=== PATIENT | female | born 1960 | race Caucasian/White ===

== ENCOUNTER → 2017-08-16 | Outpatient (CLI) | payer BC | LOC: BMCIMAGING 09:07 | PROVIDERS: ATTEND Internal Medicine | DX: Z12.31 Encounter for screening mammogram for malignant neoplasm of breast (principal) | CPT/HCPCS: G0202 ==

== ENCOUNTER 2017-12-04 05:49 | Observation (INO) | payer BC ==
[~2017-12-04 05:49] MED LIST: LIDOCAINE 1% 2 ML INJ ID PRN; LR 1,000 ML IV ONE
[2017-12-04] MEDS ORDERED: MIDAZOLAM 2 MG/2 ML VIAL ONE (07:00)
[2017-12-04] MEDS ORDERED: BUPIVACAINE/EPI 0.5% 30 ML SDV ONE ×2 (07:05→09:51)
[2017-12-04] MEDS ORDERED: PROPOFOL/EMULSION 500 MG/50 ML BOTTLE IV ONE ×2 (07:15→08:39)
[2017-12-04] MEDS ORDERED: fentaNYL 100 MCG/2 ML INJ ONE ×3 (07:15→10:07)
--- NOTE | 2017-12-04 07:21 | PDGENHP ---
History and Physical History and Physical: Assessment and Plan: 1. Cystocele, lateral Neyda has stage III pelvic organ prolapse involving all 3 compartments. She also has stress urinary incontinence. We reviewed all conservative and surgical options. At the end of our discussion she is interested in reconstructive surgery. This will involve a robotic supracervical hysterectomy , sacral colpopexy, trans-obturator sling, and perineorrhaphy. I would like her to start using Premarin cream in the vagina. 2. Incomplete uterine prolapse 3. Rectocele 4. Genuine stress incontinence, female 5. Postmenopausal atrophic vaginitis Subjective: Patient ID: Neyda Mcneil is a 57 y.o. female who presents to [facility] for prolapse. BRANDY Faye is a 57-year-old para 2 woman. 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 Her primary care provider is Dr. Molly De Leon. She repeat she presents to discuss pelvic prolapse. She first developed symptoms after the of her first child. She became menopausal about 3 years ago. Prior to that she found it difficult to place tampons due to her prolapse. She finds intercourse painful. She feels raw and as though she is tearing. She has noticed moderate bulge symptoms. Her urine stream is intermittently slow. Her symptoms appear to have worsened over the last 6 months. She occasionally has to lean back with bowel movements. She only has stress incontinence when her bladder is full, laughs hard, or has an upper respiratory infection. She wakes up once per night with the need to urinate. She has no fecal incontinence symptoms. PastMedicalHistory Past Medical History: Diagnosis Date Allergy to pollen Anemia Trauma Varicella PastSurgicalHistory Past Surgical History: Procedure Laterality Date WISDOM TOOTH EXTRACTION CURRENT MEDICATIONS: Current Outpatient Prescriptions Medication Sig calcium carbonate-vitamin D3 (CALCIUM 500 + D) 500 mg(1,250mg) -400 unit Tab per tablet Take 1 tablet by mouth daily. cholecalciferol (VITAMIN D3) 1,000 unit tablet Take 2,000 Units by mouth daily. multivitamin (HEXAVITAMIN) per tablet Take 1 tablet by mouth daily. conjugated estrogens (PREMARIN) 0.625 mg/gram vaginal cream Place 1 inch strip on finger and rub into vaginal tissues twice weekly No current facility-administered medications for this visit. ALLERGIES: Adhesive and Penicillins I have reviewed, verified and agree with the past medical, surgical, , family, social and ROS history as documented by the RN today. Objective: Vital Signs: Visit Vitals BP 100/62 Pulse 59 Temp 36.7 C (98 F) (Temporal Artery) Resp 14 Ht 1.626 m (5' 4") Wt 65.7 kg (144 lb 12.8 oz) SpO2 98% BMI 24.85 kg/m Physical Exam Gen: This is an alert, well developed woman in no distress. Neuro: She moves all extremities. Psych: She is appropriate, oriented, with normal affect. Neck: No thyroid enlargement, adenopathy, or tenderness. Lungs: Clear to ascultation, no wheezes or rales. Heart: Regular rate and rhythm without obvious murmurs. Abdomen: Soft, non-tender, without guarding, rebound, or masses. Extremities: No edema or cyanosis. Pelvic: Normal external genitalia. Cervix without lesions or discharge. Uterus normal sized, mobile, non-tender. Adnexa non-tender without enlargement. She has a gaping introitus with a hypermobile perineal body. She has a third- degree cystourethrocele, second-degree almost third-degree uterine prolapse, second-degree almost third-degree rectocele with mild atrophy. POP-Q Values are: Aa= +2, Ba= +2, C= 0 Gh= 4.5, pb= 2.5, tvl= 10 Ap= 0, Bp= 0, D= -3 DATA: I have reviewed the pertinent medical records. TIME/COMMUNICATION: I personally spent a total of 50 minutes. Of that 40 minutes was counseling/ coordination of patient's care. See my note above for details. Rah Hunt MD Board Certified Female Pelvic Medicine and Reconstructive Surgery Director of Minimally Invasive Gynecologic Surgery, [facility] Surgeon in Minimally Invasive Gynecologic Surgery [facility] Surgeon in Robotic Surgery
--- NOTE | 2017-12-04 07:21 | PDHPUP ---
History & Physical Update H&P update statement: This history and physical update is based on an assessment of the patient which was completed after admission or registration (within 24 hours), but prior to the surgery/procedure. H&P update: H&P reviewed & patient examined, no change in patient's condition since H&P completed
[2017-12-04] MEDS ORDERED: KETOROLAC 30 MG/1 ML SDV ONE (07:43)
[2017-12-04] MEDS ORDERED: SUGAMMADEX SODIUM 200 MG/2 ML VIAL IVP ONE (07:43)
[2017-12-04] MEDS ORDERED: LIDOCAINE 2% 5 ML SDV ONE (07:43)
[2017-12-04] MEDS ORDERED: ONDANSETRON 4 MG/2 ML VIAL ONE (07:43)
[2017-12-04] MEDS ORDERED: METOCLOPRAMIDE 10 MG/2 ML VIAL ONE (07:43)
[2017-12-04] MEDS ORDERED: RANITIDINE 50 MG/2 ML VIAL ONE (07:43)
[2017-12-04] MEDS ORDERED: ceFAZolin 1 GM VIAL ONE (07:43)
[2017-12-04] MEDS ORDERED: DEXAMETHASONE 4 MG/ML VIAL ONE (07:43)
[2017-12-04] MEDS ORDERED: ROCURONIUM 50 MG/5 ML VIAL ONE ×2 (07:43→08:16)
[2017-12-04] MEDS ORDERED: ALBUMIN 5% 250 ML BOTTLE IV ONE (07:48)
[2017-12-04] MEDS ORDERED: ONDANSETRON 4 MG/2 ML VIAL IVP PRN ×2 (08:11→10:22)
[2017-12-04] MEDS ORDERED: MEPERIDINE 25 MG/ML SYR IVP PRN (08:11)
[2017-12-04] MEDS ORDERED: ALBUTEROL 3 ML DEYVIAL IH PRN (08:11)
[2017-12-04] MEDS ORDERED: DEXAMETHASONE 4 MG/ML VIAL IVP PRN (08:11)
[2017-12-04] MEDS ORDERED: LR 500 ML IV PRN (08:11)
[2017-12-04] MEDS ORDERED: DIAZEPAM 10 MG/2 ML SYR IVP PRN (08:11)
[2017-12-04] MEDS ORDERED: METOCLOPRAMIDE 10 MG/2 ML VIAL IVP PRN (08:11)
[2017-12-04] MEDS ORDERED: NALOXONE HCL 0.4 MG/ML INJ IVP PRN (08:11)
[2017-12-04] MEDS ORDERED: PROMETHAZINE HCL 25 MG/ML INJ IVP PRN ×2 (08:11→10:22)
[2017-12-04] MEDS ORDERED: PHENYLEPHRINE HCL 100 MCG/ML SYR IVP PRN (08:11)
--- NOTE | 2017-12-04 08:11 | PDANEPAE ---
ANE Past Medical History - Cardiovascular History Hx Hypertension: No Hx Arrhythmias: No Hx Chest Pain: No Hx Coronary Artery / Peripheral Vascular Disease: No Hx CHF / Valvular Disease: No Hx Palpitations: No - Pulmonary History Hx COPD: No Hx Asthma/Reactive Airway Disease: No Hx Recent Upper Respiratory Infection: No Hx Oxygen in Use at Home: No Hx Sleep Apnea: No - Neurologic History Hx Cerebrovascular Accident: No Hx Seizures: No Hx Dementia: No - Endocrine History Hx Diabetes: No - Renal History Hx Renal Disorders: Yes Renal History Comment: URINARY FLOW RESTRICTION. FREQUENCY/URGENCY - Liver History Hx Hepatic Disorders: No - Neurological & Psychiatric Hx Hx Neurological and Psychiatric Disorders: No - Cancer History Hx Cancer: No - Congenital Disorder History Hx Congenital Disorders: No - GI History Hx Gastrointestinal Disorders: No - Other Health History Other Health History: HAS RT PARTIAL RTC TEAR MINOR LIMITED ROM PAIN WITH CERTAIN POSITIONING. RT WRIST TENDONITIS - Chronic Pain History Chronic Pain: No - Surgical History Prior Surgeries: WISDOM TEETH. COLONOSCOPY ANE Review of Systems Review of Systems: - Exercise capacity METS (RN): 6 METS ANE Patient History - Allergies Allergies/Adverse Reactions: Penicillins Allergy (Intermediate, Verified 11/22/17 11:15) SOLES OF HANDS AND FOOT SWELLING adhesive Allergy (Verified 11/22/17 11:16) REDNESS - Home Medications Home Medications: Calcium Carbonate [Oyster Shell Calcium 500 mg (*)] 1,000 mg PO DAILY 01/07/14 [ Last Taken Unknown] Cholecalciferol Vit D3 [Vitamin D3 2000 units tab (OTC)] 2,000 units PO DAILY [Last Taken Unknown] Estrogens,Conjugated [Premarin Vaginal (*)] 1 cj VG MOSA@21 11/20/17 [Last Taken Unknown] Multivitamins [Multivitamin (*)] 1 each PO DAILY 11/20/17 [Last Taken Unknown] - NPO status NPO Since - Liquids (Date): 12/04/17 NPO Since - Liquids (Time): 02:00 NPO Since - Solids (Date): 12/03/17 NPO Since - Solids (Time): 21:30 - Smoking Hx Smoking Status: Never smoked - Family Anes Hx Family Hx Anesthesia Complications: NEG ANE Labs/Vital Signs - Vital Signs Blood Pressure: 140/80 Heart Rate: 70 Respiratory Rate: 18 O2 Sat (%): 97 Height: 162.56 cm Weight: 63.957 kg ANE Physical Exam - Airway Neck exam: FROM Mallampati Score: Class 1 Mouth exam: normal dental/mouth exam - Pulmonary Pulmonary: no respiratory distress, no rales or rhonchi, clear to auscultation - Cardiovascular Cardiovascular: regular rate and rhythym, no murmur, rub, or gallop - ASA Status ASA Status: I ANE Anesthesia Plan Anesthesia Plan: general endotracheal anesthesia
[2017-12-04] MEDS ORDERED: ceFAZolin 2 GM/SWFI 2 GM/20 ML SYR IVP ONE (10:09)
[2017-12-04] MEDS ORDERED: OXYCODONE/APAP 5/325 TAB PO PRN (10:22)
[2017-12-04] MEDS ORDERED: HYDROmorphONE/DILAUDID 1 MG/ML INJ IVP PRN (10:22)
--- NOTE | 2017-12-04 10:22 | POSTOPPROG ---
Post Op Note Date of Operation: 12/04/17 Surgeon: Rah Hunt Grievance And Appeals Coordinator: Buffy Echols Anesthesiologist: Xiomy Anesthesia: GET(General Endotracheal) Pre-op Diagnosis: Uterovaginal prolapse, stress incontinence Post-op Diagnosis: Same Procedure: Robotic hyst/BSO, sacrocervicopexy, retropubic sling, cysto Findings: Ureters function at end of case, no bladder or urethral injury Inf/Abcess present in the surg proc area at time of surgery?: No EBL: Minimal Complications: None
[2017-12-04] MEDS: fentaNYL 100 MCG/2 ML INJ IVP PRN ×3 (10:30→10:48)
--- NOTE | 2017-12-04 11:14 | POSTANESTH ---
Post Anesthetic Evaluation Cardiovascular Status: Normal, Stable, Similar to Pre-Op Cond Respiratory Status: Normal, Stable, Similar to Pre-op Cond. Level of Consciousness/Mental Status: Mildly Sleepy, Arousable Pain Control: Adequate, Prn Tx Ordered Nausea/Vomiting Control: Adequate, Prn Tx Ordered Complications Possibly Related to Anesthesia: None Noted
--- NOTE | 2017-12-04 11:35 | GOP ---
[f rep st] OPERATIVE REPORT DATE OF OPERATION: 12/04/2017 SURGEON: Rah Hunt MD QUALITY SYSTEMS TECHNICIAN: Buffy Echols CFA ANESTHESIA: General. PREOPERATIVE DIAGNOSIS: 1. Uterovaginal prolapse. 2. Stress urinary incontinence. POSTOPERATIVE DIAGNOSIS: 1. Uterovaginal prolapse. 2. Stress urinary incontinence. PROCEDURE PERFORMED: 1. Robotic-assisted laparoscopic hysterectomy, bilateral salpingo-oophorectomy. 2. Robotic-assisted laparoscopic sacrocervicopexy with mesh. 3. Repair of cystocele and rectocele. 4. Retropubic sling. 5. Perineorrhaphy. 6. Cystoscopy. FINDINGS: SPECIMENS: Uterus, bilateral tubes, and ovaries. ESTIMATED BLOOD LOSS: Scant. DESCRIPTION OF PROCEDURE: The patient was taken to the operating room, she was identified. General anesthesia was administered and found to be adequate. She was placed in the lithotomy position, prep ared and draped in normal sterile fashion. A Joseph catheter was placed in her bladder. A 1 cm infraumbilical incision was made with a scalpel. The Veress needle with the CO2 gas flowing w as advanced into the peritoneal cavity. The abdomen was then insufflated with carbon dioxide gas. T he 12 mm trocar followed by the laparoscope were then inserted. The upper abdomen was unremarkable. Two lateral ports were placed on either side under direct visualization. The patient was then place d in Trendelenburg position and the da Shayla robot docked on the left side. The instruments were the n brought into the abdominal cavity under direct visualization. The left round ligament was divided. The anterior leaf of the broad ligament was incised to the bifu rcation of left common iliac vessels. The course of the ureter was easily identified. A window was created anterior to this to skeletonize the infundibulopelvic vessels. They were then cauterized and transected. The anterior leaf of the broad ligament was then incised over the left uterine vessels and across the cervix. The bladder was gently dissected off the cervix and upper vagina. The left u terine vasculature was then cauterized and transected. The exact same procedure was performed on the patient's right side. The uterus was then bivalved to aid in removal through the umbilicus. The ut erus and upper 2/3 of the cervix were amputated from the lower third of the cervix with the hot shear s. The specimen was then placed in the right upper quadrant for later removal. The Colpo-Probe was placed in the vagina. The bladder was further dissected off the anterior vaginal wall down to the level of bladder neck. The rectovaginal space was then entered and the rectum diss ected off the posterior vaginal wall down to the level of the perineal body. Measurements were then obtained and the mesh trimmed to size. The sigmoid colon was then retracted laterally. The peritoneum over the sacral promontory was incise d. The fat pad was gently dissected off the anterior longitudinal ligament. The mesh was then broug ht into the abdominal cavity. Three sutures of 4-0 [place]-Heath were used to attach the distal posterior mesh to the perineal body. Two additional rows of [place]-Heath sutures were placed posteriorly. Three rows were placed anteriorly to suture the mesh down to the bladder neck and laterally to the paravagi nal tissue. The Colpo-Probe was then removed. The sacral arm of the mesh was placed over the promon tory and the tension adjusted. I then scrubbed back into the case to examine vagina. The tension wa s further adjusted to resolve the cystocele and rectocele without undue tension on the vagina. Two s utures of 2-0 [place]-Heath were used to attach the sacral arm of the mesh to the anterior longitudinal li gament at the level of the 1st sacral vertebral body below the intervertebral disk space. The excess mesh was then trimmed. The peritoneum was then closed over the entire mesh with 3-0 V-Loc suture. The robot was then undocked. The specimen was removed through the umbilicus. The fascia was closed with 0 Vicryl, skin with 4-0 Monocryl and surgical adhesive. A mid urethral incision was then made with a scalpel. Tunnels were created bilaterally around the ur ethra toward the space of Retzius. The retropubic trocar with the sling attached was passed through the tunnel, redirected around the symphysis pubis and out through a suprapubic stab incision on the l eft. The exact same procedure was performed on the right. Cystoscopy was then performed. Both uret ers had vigorous jets of urine. There was no evidence of bladder nor urethral injury seen. No mesh nor suture was seen within the bladder nor urethra. No obvious pathology was seen. The sling was th en adjusted to allow a small mid urethral gap. The vaginal epithelium closed with 2-0 Vicryl, skin w ith 4-0 Monocryl. A transverse incision was then made along the perineal body. The posterior vaginal epithelium was un dermined with the Metzenbaum scissors and incised sagittally. The epithelium was then gently dissect ed off the rectovaginal connective tissue. The connective tissue was then plicated in midline with 0 Vicryl suture and reattached to the perineal body. The bulbospongiosus and transverse perineal musc les were then plicated in the midline. The excess epithelium was then trimmed and closed with a runn ing 2-0 Vicryl suture. Vaginal packing was then placed. Anesthesia was reversed and the patient jessika en to PACU awake, in stable condition. COMPLICATIONS: None. DISPOSITION: Patient stable to PACU. /[id number]/MODL
[2017-12-04] MEDS ORDERED: ceFAZolin 2 GM/DEXTROSE 100 ML IV SCH (14:00)
[2017-12-04] MEDS: KETOROLAC 30 MG/1 ML SDV IVP SCH ×2 (17:39→23:36)
[2017-12-04] MEDS: LR 1,000 ML IV SCH (17:40)
[2017-12-04] MEDS: SIMETHICONE 80 MG TAB CHEW PO SCH ×3 (18:38→23:36)
[2017-12-04] MEDS: DOCUSATE SODIUM 100 MG CAP PO SCH (21:37)
[2017-12-04] MEDS: HYDROCODONE/APAP 5/325 TAB PO PRN (21:38)
[2017-12-05] MEDS: ceFAZolin 2 GM/DEXTROSE 100 ML IV SCH ×2 (01:58→12:22)
[2017-12-05] MEDS: LR 1,000 ML IV SCH (01:58)
[2017-12-05] MEDS: KETOROLAC 30 MG/1 ML SDV IVP SCH (05:49)
[2017-12-05] MEDS: HYDROCODONE/APAP 5/325 TAB PO PRN (10:14)
[2017-12-05] MEDS: DOCUSATE SODIUM 100 MG CAP PO SCH (10:14)
[2017-12-05] MEDS: SIMETHICONE 80 MG TAB CHEW PO SCH (10:14)
[2017-12-05 10:51] VITALS: BP 122/82; PULSE 85; RESP 14; TEMP 97.7; O2SAT 94
== END 2017-12-05 12:40 | disposition home or self-care (01) ==
LOC: F3N 05:49 → FOB 12:31
PROVIDERS: ADMIT Obstetrics & Gynecology; ATTEND Obstetrics & Gynecology
PROC: 0UUG4JZ Supplement Vagina with Synthetic Substitute, Percutaneous Endoscopic Approach (ICD-10-PCS; principal; 2017-12-04 07:15)
PROC: 0TUC0JZ Supplement Bladder Neck with Synthetic Substitute, Open Approach (ICD-10-PCS; principal; 2017-12-04 07:15)
PROC: 0UBC8ZZ Excision of Cervix, Via Natural or Artificial Opening Endoscopic (ICD-10-PCS; principal; 2017-12-04 07:15)
PROC: 0UQG0ZZ Repair Vagina, Open Approach (ICD-10-PCS; principal; 2017-12-04 07:15)
PROC: 0UT9FZZ Resection of Uterus, Via Natural or Artificial Opening With Percutaneous Endoscopic Assistance (ICD-10-PCS; principal; 2017-12-04 07:15)
PROC: 0UT2FZZ Resection of Bilateral Ovaries, Via Natural or Artificial Opening With Percutaneous Endoscopic Assistance (ICD-10-PCS; principal; 2017-12-04 07:15)
PROC: 0DQP4ZZ Repair Rectum, Percutaneous Endoscopic Approach (ICD-10-PCS; principal; 2017-12-04 07:15)
PROC: 8E0Y4CZ Robotic Assisted Procedure of Lower Extremity, Percutaneous Endoscopic Approach (ICD-10-PCS; principal; 2017-12-04 07:15)
PROC: 0UT7FZZ Resection of Bilateral Fallopian Tubes, Via Natural or Artificial Opening With Percutaneous Endoscopic Assistance (ICD-10-PCS; principal; 2017-12-04 07:15)
DX: N81.2 Incomplete uterovaginal prolapse (principal); N81.6 Rectocele; N81.10 Cystocele, unspecified; N39.3 Stress incontinence (female) (male); N95.2 Postmenopausal atrophic vaginitis; Z88.0 Allergy status to penicillin
CPT/HCPCS: 57250; 57288; 57425; 58570; G0378; C1763; C1771; J0690; J1100; J1885; J2250; J2270; J2370; J2405; J2704; J2765; J2780; J3010; P9041

== ENCOUNTER → 2018-08-29 | Outpatient (CLI) | payer BC | LOC: CIMAGING 09:49 | PROVIDERS: ATTEND Internal Medicine | DX: Z12.31 Encounter for screening mammogram for malignant neoplasm of breast (principal) ==